=== PATIENT | female | born 1965 | race African-American/Black ===

== ENCOUNTER 2016-02-18 18:55 | Inpatient (IN) | payer OTHER ==
[2016-02-18] MEDS ORDERED: MAGNESIUM HYDROX 2400MG/30ML ORAL SUSPENSION 30 ML CUP PO PRN (19:19)
[2016-02-18] MEDS ORDERED: IBUPROFEN 400 MG TABLET (FP) PO PRN (19:19)
[2016-02-18] MEDS ORDERED: MENTHOL/PHENOL 1 EACH UD MM PRN (19:19)
[2016-02-18] MEDS ORDERED: ACETAMINOPHEN 325 MG TABLET (FP) PO PRN (19:19)
[2016-02-18] MEDS ORDERED: MAG HYDROX/AL HYDROX/SIMETH 30 ML UNIT-DOSE CUP PO PRN (19:19)
[2016-02-18] MEDS ORDERED: P-EPHED 60MG/TRIPROLIDI 2.5MG TABLET PO PRN (19:19)
[2016-02-18] MEDS ORDERED: MAGNESIUM CITRATE 300 ML BOTTLE PO PRN (19:19)
[2016-02-18] MEDS ORDERED: guaiFENesin/D-METHORPHAN HB 10 ML UNIT-DOSE CUPS PO PRN (19:19)
--- NOTE | 2016-02-18 19:19 | HP ---
DARYA ARELLANO Rehab Assess/Revision - Admission History Admitted to Rehab from: Medical/Surgical Date of Admission to Rehab: REHAB - Findings Detox History & Physical reviewed: Yes Concur with findings: Yes Comments/Additional Findings: PT. WAS SENT TO MED/SURG BY ME BECAUSE OF LLL PNEUMONIA. SHE WAS TREATED WITH IV LEVAQUIN & DEFERVESCED. URINE & BLOOD C&S NEGATIVE SO FAR. PT WILL BE RE-ADMITTED TO COMPLETE REHAB.
[2016-02-18] MEDS ORDERED: ALBUTEROL SO4 6.7 GM HFA INHALER IH PRN (19:20)
[2016-02-18] MEDS: THIAMINE HCL 100 MG TABLET (FP) PO SCH (21:48)
[2016-02-18] MEDS: BUDESONIDE/FORMETEROL FUMARATE 80/4.5 mcg INHALER IH SCH (21:48)
[2016-02-19] MEDS: diphenhydrAMINE HCL 50 MG CAPSULE PO PRN (01:00)
[2016-02-19] MEDS: GABAPENTIN 300 MG CAPSULE (FP) PO SCH ×3 (07:05→21:37)
[2016-02-19] MEDS: BACLOFEN 10 MG TABLET (FP) PO SCH ×3 (07:05→21:38)
[2016-02-19] MEDS ORDERED: ARIPiprazole 10 MG TABLET PO SCH (10:00)
[2016-02-19] MEDS ORDERED: LEVOFLOXACIN 750 MG TABLET PO SCH (10:00)
[2016-02-19] MEDS ORDERED: LEVOFLOXACIN 250 MG TABLET (FP) PO SCH (10:00)
[2016-02-19] MEDS: NICOTINE 21 MG/24 HOURS TOPICAL PATCH TD SCH (10:29)
[2016-02-19] MEDS: ARIPiprazole 15 MG TABLET PO SCH (10:30)
[2016-02-19] MEDS: BUDESONIDE/FORMETEROL FUMARATE 80/4.5 mcg INHALER IH SCH ×2 (10:30→21:40)
[2016-02-19] MEDS: amLODIPine BESYLATE 10 MG TABLET (FP) PO SCH (10:31)
[2016-02-19] MEDS: ASPIRIN 81 MG CHEWABLE TABLETS PO SCH (10:31)
[2016-02-19] MEDS: PRENATAL VITAMINS W/ FOLIC ACID TABLET (FP) PO SCH (10:31)
[2016-02-19] MEDS ORDERED: LEVOFLOXACIN 250 MG TABLET (FP) PO ONE (11:00)
[2016-02-19] MEDS: THIAMINE HCL 100 MG TABLET (FP) PO SCH (21:37)
[2016-02-19] MEDS: traZODone HCL 100 MG TABLET (FP) PO SCH (21:38)
[2016-02-20] MEDS: GABAPENTIN 300 MG CAPSULE (FP) PO SCH ×3 (06:13→21:40)
[2016-02-20] MEDS: BACLOFEN 10 MG TABLET (FP) PO SCH ×3 (06:13→21:40)
[2016-02-20] MEDS: LEVOFLOXACIN 250 MG TABLET (FP) PO SCH (06:13)
[2016-02-20] MEDS: ASPIRIN 81 MG CHEWABLE TABLETS PO SCH (10:54)
[2016-02-20] MEDS: BUDESONIDE/FORMETEROL FUMARATE 80/4.5 mcg INHALER IH SCH ×2 (10:55→21:39)
[2016-02-20] MEDS: NICOTINE 21 MG/24 HOURS TOPICAL PATCH TD SCH (10:55)
[2016-02-20] MEDS: ARIPiprazole 15 MG TABLET PO SCH (10:55)
[2016-02-20] MEDS: amLODIPine BESYLATE 10 MG TABLET (FP) PO SCH (10:55)
[2016-02-20] MEDS: PRENATAL VITAMINS W/ FOLIC ACID TABLET (FP) PO SCH (10:55)
[2016-02-20] MEDS: NICOTINE POLACRILEX 2 MG GUM BUC PRN (11:18)
[2016-02-20] MEDS: THIAMINE HCL 100 MG TABLET (FP) PO SCH (21:39)
[2016-02-20] MEDS: traZODone HCL 100 MG TABLET (FP) PO SCH (21:40)
[2016-02-20] MEDS: amLODIPine BESYLATE 5 MG TABLET (FP) PO SCH (23:25)
[2016-02-21] MEDS: GABAPENTIN 300 MG CAPSULE (FP) PO SCH ×3 (06:31→21:40)
[2016-02-21] MEDS: BACLOFEN 10 MG TABLET (FP) PO SCH ×3 (06:31→21:40)
[2016-02-21] MEDS: LEVOFLOXACIN 250 MG TABLET (FP) PO SCH (06:32)
[2016-02-21] MEDS: PRENATAL VITAMINS W/ FOLIC ACID TABLET (FP) PO SCH (10:33)
[2016-02-21] MEDS: ARIPiprazole 15 MG TABLET PO SCH (10:33)
[2016-02-21] MEDS: BUDESONIDE/FORMETEROL FUMARATE 80/4.5 mcg INHALER IH SCH ×2 (10:33→21:39)
[2016-02-21] MEDS: amLODIPine BESYLATE 5 MG TABLET (FP) PO SCH ×2 (10:33→21:40)
[2016-02-21] MEDS: NICOTINE 21 MG/24 HOURS TOPICAL PATCH TD SCH (10:34)
[2016-02-21] MEDS: ASPIRIN 81 MG CHEWABLE TABLETS PO SCH (10:34)
[2016-02-21] MEDS: NICOTINE POLACRILEX 2 MG GUM BUC PRN (10:37)
[2016-02-21] MEDS: traZODone HCL 100 MG TABLET (FP) PO SCH (21:40)
[2016-02-21] MEDS: THIAMINE HCL 100 MG TABLET (FP) PO SCH (21:40)
[2016-02-22] MEDS: GABAPENTIN 300 MG CAPSULE (FP) PO SCH ×3 (06:17→22:02)
[2016-02-22] MEDS: BACLOFEN 10 MG TABLET (FP) PO SCH ×3 (06:17→22:02)
[2016-02-22] MEDS: LEVOFLOXACIN 250 MG TABLET (FP) PO SCH (06:18)
[2016-02-22] MEDS: ARIPiprazole 15 MG TABLET PO SCH (11:08)
[2016-02-22] MEDS: PRENATAL VITAMINS W/ FOLIC ACID TABLET (FP) PO SCH (11:08)
[2016-02-22] MEDS: NICOTINE 21 MG/24 HOURS TOPICAL PATCH TD SCH (11:08)
[2016-02-22] MEDS: ASPIRIN 81 MG CHEWABLE TABLETS PO SCH (11:08)
[2016-02-22] MEDS: amLODIPine BESYLATE 5 MG TABLET (FP) PO SCH ×2 (11:08→22:02)
[2016-02-22] MEDS: BUDESONIDE/FORMETEROL FUMARATE 80/4.5 mcg INHALER IH SCH ×2 (11:09→22:04)
[2016-02-22] MEDS: THIAMINE HCL 100 MG TABLET (FP) PO SCH (22:02)
[2016-02-22] MEDS: traZODone HCL 100 MG TABLET (FP) PO SCH (22:02)
[2016-02-23] MEDS: LEVOFLOXACIN 250 MG TABLET (FP) PO SCH (05:56)
[2016-02-23] MEDS: GABAPENTIN 300 MG CAPSULE (FP) PO SCH ×3 (05:56→22:01)
[2016-02-23] MEDS: BACLOFEN 10 MG TABLET (FP) PO SCH ×3 (05:57→22:01)
[2016-02-23] MEDS: amLODIPine BESYLATE 5 MG TABLET (FP) PO SCH ×2 (10:51→22:38)
[2016-02-23] MEDS: ASPIRIN 81 MG CHEWABLE TABLETS PO SCH (10:51)
[2016-02-23] MEDS: NICOTINE 21 MG/24 HOURS TOPICAL PATCH TD SCH (10:51)
[2016-02-23] MEDS: PRENATAL VITAMINS W/ FOLIC ACID TABLET (FP) PO SCH (10:51)
[2016-02-23] MEDS: ARIPiprazole 15 MG TABLET PO SCH (10:51)
[2016-02-23] MEDS: BUDESONIDE/FORMETEROL FUMARATE 80/4.5 mcg INHALER IH SCH ×2 (10:52→22:00)
[2016-02-23] MEDS: THIAMINE HCL 100 MG TABLET (FP) PO SCH (22:01)
[2016-02-23] MEDS: traZODone HCL 100 MG TABLET (FP) PO SCH (22:02)
[2016-02-24] MEDS: LEVOFLOXACIN 250 MG TABLET (FP) PO SCH (06:36)
[2016-02-24] MEDS: BACLOFEN 10 MG TABLET (FP) PO SCH ×3 (06:36→21:57)
[2016-02-24] MEDS: GABAPENTIN 300 MG CAPSULE (FP) PO SCH ×3 (06:36→21:57)
[2016-02-24] MEDS: ASPIRIN 81 MG CHEWABLE TABLETS PO SCH (10:49)
[2016-02-24] MEDS: PRENATAL VITAMINS W/ FOLIC ACID TABLET (FP) PO SCH (10:49)
[2016-02-24] MEDS: NICOTINE 21 MG/24 HOURS TOPICAL PATCH TD SCH (10:49)
[2016-02-24] MEDS: ARIPiprazole 15 MG TABLET PO SCH (10:49)
[2016-02-24] MEDS: amLODIPine BESYLATE 5 MG TABLET (FP) PO SCH ×2 (10:49→21:57)
[2016-02-24] MEDS: BUDESONIDE/FORMETEROL FUMARATE 80/4.5 mcg INHALER IH SCH ×2 (10:49→21:58)
[2016-02-24] MEDS: NICOTINE POLACRILEX 2 MG GUM BUC PRN (10:51)
--- NOTE | 2016-02-24 11:00 | PN ---
[facility] Progress Note Note: PT. C/O SHARP CHEST PAIN ALONG STERNAL BORDER,SHE CURRENTLY BEING TREATED FOR PNEUMONIA. Vital Signs - 8 hr 02/24/16 02/24/16 02/24/16 03:30 07:10 09:43 Temperature 98.6 F Pulse Rate 88 88 Respiratory 18 18 Rate Blood Pressure 128/83 116/71 LUNGS : CLEAR TO A&P HEART RR, NO MURMUR EKG = WNL P : CONTINUE LEVAQUIN
[2016-02-24] MEDS: diphenhydrAMINE HCL 50 MG CAPSULE PO PRN (21:55)
[2016-02-24] MEDS: THIAMINE HCL 100 MG TABLET (FP) PO SCH (21:55)
[2016-02-24] MEDS: traZODone HCL 100 MG TABLET (FP) PO SCH (21:57)
[2016-02-25] MEDS: GABAPENTIN 300 MG CAPSULE (FP) PO SCH ×3 (06:32→21:47)
[2016-02-25] MEDS: BACLOFEN 10 MG TABLET (FP) PO SCH ×3 (06:32→21:46)
[2016-02-25] MEDS: LEVOFLOXACIN 250 MG TABLET (FP) PO SCH (06:32)
[2016-02-25] MEDS: ARIPiprazole 15 MG TABLET PO SCH (10:43)
[2016-02-25] MEDS: amLODIPine BESYLATE 5 MG TABLET (FP) PO SCH ×2 (10:43→21:46)
[2016-02-25] MEDS: ASPIRIN 81 MG CHEWABLE TABLETS PO SCH (10:43)
[2016-02-25] MEDS: BUDESONIDE/FORMETEROL FUMARATE 80/4.5 mcg INHALER IH SCH ×2 (10:43→21:46)
[2016-02-25] MEDS: PRENATAL VITAMINS W/ FOLIC ACID TABLET (FP) PO SCH (10:44)
[2016-02-25] MEDS: NICOTINE 21 MG/24 HOURS TOPICAL PATCH TD SCH (10:44)
[2016-02-25] MEDS: hydrOXYzine PAMOATE 50 MG CAPSULE (FP) PO PRN (13:45)
[2016-02-25] MEDS: THIAMINE HCL 100 MG TABLET (FP) PO SCH (21:46)
[2016-02-25] MEDS: traZODone HCL 100 MG TABLET (FP) PO SCH (21:46)
[2016-02-26] MEDS: LEVOFLOXACIN 250 MG TABLET (FP) PO SCH (06:06)
[2016-02-26] MEDS: GABAPENTIN 300 MG CAPSULE (FP) PO SCH ×3 (06:07→21:35)
[2016-02-26] MEDS: BACLOFEN 10 MG TABLET (FP) PO SCH ×3 (06:07→21:35)
[2016-02-26] MEDS: amLODIPine BESYLATE 5 MG TABLET (FP) PO SCH (10:27)
[2016-02-26] MEDS: ARIPiprazole 15 MG TABLET PO SCH (10:27)
[2016-02-26] MEDS: ASPIRIN 81 MG CHEWABLE TABLETS PO SCH (10:27)
[2016-02-26] MEDS: PRENATAL VITAMINS W/ FOLIC ACID TABLET (FP) PO SCH (10:27)
[2016-02-26] MEDS: BUDESONIDE/FORMETEROL FUMARATE 80/4.5 mcg INHALER IH SCH ×2 (10:28→21:37)
[2016-02-26] MEDS: NICOTINE 21 MG/24 HOURS TOPICAL PATCH TD SCH (10:28)
[2016-02-26] MEDS: traZODone HCL 100 MG TABLET (FP) PO SCH (21:35)
[2016-02-26] MEDS: THIAMINE HCL 100 MG TABLET (FP) PO SCH (21:35)
[2016-02-27] MEDS: BACLOFEN 10 MG TABLET (FP) PO SCH ×3 (06:18→21:40)
[2016-02-27] MEDS: GABAPENTIN 300 MG CAPSULE (FP) PO SCH ×3 (06:19→21:41)
[2016-02-27] MEDS: ARIPiprazole 15 MG TABLET PO SCH (10:31)
[2016-02-27] MEDS: ASPIRIN 81 MG CHEWABLE TABLETS PO SCH (10:32)
[2016-02-27] MEDS: NICOTINE 21 MG/24 HOURS TOPICAL PATCH TD SCH (10:32)
[2016-02-27] MEDS: PRENATAL VITAMINS W/ FOLIC ACID TABLET (FP) PO SCH (10:33)
[2016-02-27] MEDS: amLODIPine BESYLATE 5 MG TABLET (FP) PO SCH (10:33)
[2016-02-27] MEDS: BUDESONIDE/FORMETEROL FUMARATE 80/4.5 mcg INHALER IH SCH ×2 (10:34→21:40)
[2016-02-27] MEDS: NICOTINE POLACRILEX 2 MG GUM BUC PRN (10:35)
[2016-02-27] MEDS: THIAMINE HCL 100 MG TABLET (FP) PO SCH (21:41)
[2016-02-27] MEDS: traZODone HCL 100 MG TABLET (FP) PO SCH (21:41)
[2016-02-28] MEDS: BACLOFEN 10 MG TABLET (FP) PO SCH ×3 (06:43→21:42)
[2016-02-28] MEDS: GABAPENTIN 300 MG CAPSULE (FP) PO SCH ×3 (06:44→21:41)
--- NOTE | 2016-02-28 09:48 | EKG ---
Test Reason : Blood Pressure : / mmHG Vent. Rate : 073 BPM Atrial Rate : 073 BPM P-R Int : 152 ms QRS Dur : 088 ms QT Int : 422 ms P-R-T Axes : 039 015 033 degrees QTc Int : 464 ms NORMAL SINUS RHYTHM NORMAL ECG WHEN COMPARED WITH ECG OF 16-FEB-2016 14:22, T WAVE AMPLITUDE HAS INCREASED IN LATERAL LEADS Confirmed by ARTHUR ARELLANO, MAKEDA ([id number]) on 02/28/2016 9:47:51 AM Referred By: Confirmed By:MAKEDA GIBSON MD
[2016-02-28] MEDS: amLODIPine BESYLATE 5 MG TABLET (FP) PO SCH (10:23)
[2016-02-28] MEDS: ARIPiprazole 15 MG TABLET PO SCH (10:23)
[2016-02-28] MEDS: NICOTINE 21 MG/24 HOURS TOPICAL PATCH TD SCH (10:23)
[2016-02-28] MEDS: ASPIRIN 81 MG CHEWABLE TABLETS PO SCH (10:23)
[2016-02-28] MEDS: BUDESONIDE/FORMETEROL FUMARATE 80/4.5 mcg INHALER IH SCH ×2 (10:24→21:41)
[2016-02-28] MEDS: PRENATAL VITAMINS W/ FOLIC ACID TABLET (FP) PO SCH (10:24)
[2016-02-28] MEDS: NICOTINE POLACRILEX 2 MG GUM BUC PRN (13:04)
[2016-02-28] MEDS: LIDOCAINE 5% TOPICAL PATCH TP SCH (15:31)
[2016-02-28] MEDS: THIAMINE HCL 100 MG TABLET (FP) PO SCH (21:42)
[2016-02-28] MEDS: traZODone HCL 100 MG TABLET (FP) PO SCH (21:42)
[2016-02-29] MEDS: GABAPENTIN 300 MG CAPSULE (FP) PO SCH ×3 (06:16→21:56)
[2016-02-29] MEDS: BACLOFEN 10 MG TABLET (FP) PO SCH ×3 (06:17→21:58)
[2016-02-29] MEDS: LIDOCAINE 5% TOPICAL PATCH TP SCH (10:26)
[2016-02-29] MEDS: BUDESONIDE/FORMETEROL FUMARATE 80/4.5 mcg INHALER IH SCH ×2 (10:26→21:45)
[2016-02-29] MEDS: ASPIRIN 81 MG CHEWABLE TABLETS PO SCH (10:27)
[2016-02-29] MEDS: NICOTINE 21 MG/24 HOURS TOPICAL PATCH TD SCH (10:27)
[2016-02-29] MEDS: PRENATAL VITAMINS W/ FOLIC ACID TABLET (FP) PO SCH (10:27)
[2016-02-29] MEDS: ARIPiprazole 15 MG TABLET PO SCH (10:28)
[2016-02-29] MEDS: amLODIPine BESYLATE 5 MG TABLET (FP) PO SCH (10:28)
[2016-02-29] MEDS: LOPERAMIDE HCL 2 MG CAPSULE PO PRN (10:29)
[2016-02-29] MEDS: THIAMINE HCL 100 MG TABLET (FP) PO SCH (21:56)
[2016-02-29] MEDS: traZODone HCL 100 MG TABLET (FP) PO SCH (21:56)
[2016-03-01] MEDS: LOPERAMIDE HCL 2 MG CAPSULE PO PRN (06:22)
[2016-03-01] MEDS: BACLOFEN 10 MG TABLET (FP) PO SCH ×3 (06:22→21:52)
[2016-03-01] MEDS: GABAPENTIN 300 MG CAPSULE (FP) PO SCH ×3 (06:23→21:50)
[2016-03-01] MEDS: ASPIRIN 81 MG CHEWABLE TABLETS PO SCH (10:43)
[2016-03-01] MEDS: ARIPiprazole 15 MG TABLET PO SCH (10:43)
[2016-03-01] MEDS: BUDESONIDE/FORMETEROL FUMARATE 80/4.5 mcg INHALER IH SCH ×2 (10:43→21:52)
[2016-03-01] MEDS: PRENATAL VITAMINS W/ FOLIC ACID TABLET (FP) PO SCH (10:43)
[2016-03-01] MEDS: amLODIPine BESYLATE 5 MG TABLET (FP) PO SCH (10:43)
[2016-03-01] MEDS: LIDOCAINE 5% TOPICAL PATCH TP SCH (10:44)
[2016-03-01] MEDS: NICOTINE 21 MG/24 HOURS TOPICAL PATCH TD SCH (10:44)
[2016-03-01] MEDS: NICOTINE POLACRILEX 2 MG GUM BUC PRN (10:46)
[2016-03-01] MEDS: THIAMINE HCL 100 MG TABLET (FP) PO SCH (21:50)
[2016-03-01] MEDS: traZODone HCL 100 MG TABLET (FP) PO SCH (21:51)
[2016-03-02] MEDS: GABAPENTIN 300 MG CAPSULE (FP) PO SCH ×3 (06:11→21:42)
[2016-03-02] MEDS: BACLOFEN 10 MG TABLET (FP) PO SCH ×3 (06:11→21:43)
[2016-03-02] MEDS: NICOTINE 21 MG/24 HOURS TOPICAL PATCH TD SCH (10:18)
[2016-03-02] MEDS: LIDOCAINE 5% TOPICAL PATCH TP SCH (10:18)
[2016-03-02] MEDS: ARIPiprazole 15 MG TABLET PO SCH (10:19)
[2016-03-02] MEDS: PRENATAL VITAMINS W/ FOLIC ACID TABLET (FP) PO SCH (10:19)
[2016-03-02] MEDS: BUDESONIDE/FORMETEROL FUMARATE 80/4.5 mcg INHALER IH SCH ×2 (10:19→21:42)
[2016-03-02] MEDS: amLODIPine BESYLATE 5 MG TABLET (FP) PO SCH (10:19)
[2016-03-02] MEDS: ASPIRIN 81 MG CHEWABLE TABLETS PO SCH (10:19)
[2016-03-02] MEDS: traZODone HCL 100 MG TABLET (FP) PO SCH (21:42)
[2016-03-02] MEDS: THIAMINE HCL 100 MG TABLET (FP) PO SCH (21:43)
[2016-03-03] MEDS: GABAPENTIN 300 MG CAPSULE (FP) PO SCH ×3 (06:34→21:40)
[2016-03-03] MEDS: BACLOFEN 10 MG TABLET (FP) PO SCH ×3 (06:35→21:41)
[2016-03-03] MEDS: amLODIPine BESYLATE 5 MG TABLET (FP) PO SCH (09:27)
[2016-03-03] MEDS: ARIPiprazole 15 MG TABLET PO SCH (10:28)
[2016-03-03] MEDS: ASPIRIN 81 MG CHEWABLE TABLETS PO SCH (10:28)
[2016-03-03] MEDS: BUDESONIDE/FORMETEROL FUMARATE 80/4.5 mcg INHALER IH SCH ×2 (10:28→21:40)
[2016-03-03] MEDS: PRENATAL VITAMINS W/ FOLIC ACID TABLET (FP) PO SCH (10:28)
[2016-03-03] MEDS: NICOTINE 21 MG/24 HOURS TOPICAL PATCH TD SCH (10:29)
[2016-03-03] MEDS: LIDOCAINE 5% TOPICAL PATCH TP SCH (10:29)
[2016-03-03] MEDS ORDERED: PT OWN MED DRAWER 7, Y5N ONE (20:08)
[2016-03-03] MEDS: THIAMINE HCL 100 MG TABLET (FP) PO SCH (21:41)
[2016-03-03] MEDS: traZODone HCL 100 MG TABLET (FP) PO SCH (21:41)
[2016-03-04] MEDS: hydrOXYzine PAMOATE 50 MG CAPSULE (FP) PO PRN (02:37)
[2016-03-04] MEDS: BACLOFEN 10 MG TABLET (FP) PO SCH ×3 (06:05→22:07)
[2016-03-04] MEDS: GABAPENTIN 300 MG CAPSULE (FP) PO SCH ×3 (06:05→22:07)
[2016-03-04] MEDS: ASPIRIN 81 MG CHEWABLE TABLETS PO SCH (10:39)
[2016-03-04] MEDS: amLODIPine BESYLATE 5 MG TABLET (FP) PO SCH (10:39)
[2016-03-04] MEDS: ARIPiprazole 15 MG TABLET PO SCH (10:39)
[2016-03-04] MEDS: PRENATAL VITAMINS W/ FOLIC ACID TABLET (FP) PO SCH (10:40)
[2016-03-04] MEDS: BUDESONIDE/FORMETEROL FUMARATE 80/4.5 mcg INHALER IH SCH ×2 (10:40→22:09)
[2016-03-04] MEDS: LIDOCAINE 5% TOPICAL PATCH TP SCH (10:41)
[2016-03-04] MEDS: NICOTINE 21 MG/24 HOURS TOPICAL PATCH TD SCH (10:42)
[2016-03-04] MEDS: THIAMINE HCL 100 MG TABLET (FP) PO SCH (22:07)
[2016-03-04] MEDS: traZODone HCL 100 MG TABLET (FP) PO SCH (22:07)
[2016-03-05] MEDS: GABAPENTIN 300 MG CAPSULE (FP) PO SCH ×3 (06:15→22:49)
[2016-03-05] MEDS: BACLOFEN 10 MG TABLET (FP) PO SCH ×3 (06:15→22:49)
[2016-03-05] MEDS: NICOTINE 21 MG/24 HOURS TOPICAL PATCH TD SCH (10:45)
[2016-03-05] MEDS: ASPIRIN 81 MG CHEWABLE TABLETS PO SCH (10:46)
[2016-03-05] MEDS: PRENATAL VITAMINS W/ FOLIC ACID TABLET (FP) PO SCH (10:46)
[2016-03-05] MEDS: BUDESONIDE/FORMETEROL FUMARATE 80/4.5 mcg INHALER IH SCH ×2 (10:46→22:50)
[2016-03-05] MEDS: ARIPiprazole 15 MG TABLET PO SCH (10:46)
[2016-03-05] MEDS: amLODIPine BESYLATE 5 MG TABLET (FP) PO SCH (10:48)
[2016-03-05] MEDS: LIDOCAINE 5% TOPICAL PATCH TP SCH (10:55)
[2016-03-05] MEDS: THIAMINE HCL 100 MG TABLET (FP) PO SCH (22:49)
[2016-03-05] MEDS: traZODone HCL 100 MG TABLET (FP) PO SCH (22:49)
[2016-03-06] MEDS: BACLOFEN 10 MG TABLET (FP) PO SCH ×3 (06:06→21:35)
[2016-03-06] MEDS: GABAPENTIN 300 MG CAPSULE (FP) PO SCH ×3 (06:06→21:35)
[2016-03-06] MEDS ORDERED: PT OWN MED DRAWER 7, Y5N ONE (08:41)
[2016-03-06] MEDS: LIDOCAINE 5% TOPICAL PATCH TP SCH (10:42)
[2016-03-06] MEDS: NICOTINE 21 MG/24 HOURS TOPICAL PATCH TD SCH (10:42)
[2016-03-06] MEDS: BUDESONIDE/FORMETEROL FUMARATE 80/4.5 mcg INHALER IH SCH ×2 (10:43→21:37)
[2016-03-06] MEDS: ASPIRIN 81 MG CHEWABLE TABLETS PO SCH (10:43)
[2016-03-06] MEDS: ARIPiprazole 15 MG TABLET PO SCH (10:43)
[2016-03-06] MEDS: amLODIPine BESYLATE 5 MG TABLET (FP) PO SCH (10:43)
[2016-03-06] MEDS: PRENATAL VITAMINS W/ FOLIC ACID TABLET (FP) PO SCH (10:43)
--- NOTE | 2016-03-06 14:41 | PN ---
Psychiatric Progress Note Vital Signs: Vital Signs Period Temp Pulse Resp BP Sys/Li Pulse Ox Last 24 Hr 98.5 F 84-91 16-18 121-122/82-82 Date of Session: 03/06/16 Chief Complaint:: Discharge visit HPI: Patient addressed Alcohol,Opioid and Cocaine dependence comorbid with Bipolar disorder. ROS: BA,Chronic arthritis,HTN. Current Medications: Active Medications Generic Name Dose Route Start Last Admin Trade Name Freq PRN Reason Stop Dose Admin Acetaminophen 650 mg 02/18/16 19:19 Tylenol - PO Q4H PRN FEVER OR PAIN Al Hydroxide/Mg Hydroxide 30 ml 02/18/16 19:19 Mylanta Oral Suspension - PO Q6H PRN DYSPEPSIA Albuterol Sulfate 2 puff 02/18/16 19:20 Ventolin Hfa Inhaler - IH Q4H PRN ASTHMA Amlodipine Besylate 5 mg 02/27/16 10:00 03/06/16 10:43 Norvasc - PO 5 mg DAILY SAROJ Administration Aripiprazole 15 mg 02/19/16 10:15 03/06/16 10:43 Abilify PO 15 mg DAILY SAROJ Administration Aspirin 81 mg 02/19/16 10:00 03/06/16 10:43 Asa - PO 81 mg DAILY SAROJ Administration Baclofen 20 mg 02/19/16 06:00 03/06/16 13:25 Lioresal - PO 20 mg TID SAROJ Administration Budesonide/Formoterol Fumarate 2 puff 02/18/16 22:00 03/06/16 10:43 Symbicort 80/4.5mcg - IH 2 puff BID SAROJ Administration Diphenhydramine HCl 50 mg 02/18/16 19:19 02/24/16 21:55 Benadryl - PO 50 mg HSMR1 PRN Administration FOR ITCHING Eucalyptus/Menthol/Phenol/Sorbitol 1 each 02/18/16 19:19 Cepastat Lozenge - MM Q4H PRN SORE THROAT Gabapentin 900 mg 02/19/16 06:15 03/06/16 13:25 Neurontin - PO 900 mg TID SAROJ Administration Guaifenesin 10 ml 02/18/16 19:19 Robitussin Dm - PO Q6H PRN COUGH Hydroxyzine Pamoate 50 mg 02/22/16 10:56 03/04/16 02:37 Vistaril - PO 50 mg Q6H PRN Administration ANXIETY Ibuprofen 400 mg 02/18/16 19:19 03/03/16 06:36 Motrin - PO 400 mg Q6H PRN Administration PAIN Lidocaine 1 patch 02/28/16 15:00 03/06/16 10:42 Lidoderm Patch - TP 1 patch DAILY SAROJ Administration Loperamide HCl 4 mg 02/18/16 19:19 03/01/16 06:22 Imodium - PO 4 mg Q6H PRN Administration DIARRHEA Magnesium Hydroxide 30 ml 02/18/16 19:19 Milk Of Magnesia - PO DAILY PRN CONSTIPATION Nicotine 21 mg 02/19/16 10:00 03/06/16 10:42 Nicoderm Patch - TD 21 mg DAILY SAROJ Administration Nicotine Polacrilex 2 mg 02/18/16 19:19 03/01/16 10:46 Nicorette Gum - BUC 2 mg Q2H PRN Administration NICOTINE REPLACEMENT RX Multivit/Folic Acid/Iron 1 tab 02/19/16 10:00 03/06/16 10:43 Vitamins (Sjr) - PO 1 tab DAILY SAROJ Administration Pseudoephedrine/Triprolidine 1 combo 02/18/16 19:19 Actifed - PO TID PRN NASAL CONGESTION Thiamine HCl 100 mg 02/18/16 22:00 03/05/16 22:49 Vitamin B1 - PO 100 mg HS SAROJ Administration Trazodone HCl 200 mg 02/19/16 22:00 03/05/16 22:49 Desyrel - PO 200 mg HS SAROJ Administration Current Side Effect: No Lab tests ordered: No Lab tests reviewed: Yes Provider note:: patient will complete this program tomorrow 03/07/16.She was readmitted from medical floor of [facility] on 02/18/16 after being treated for pneumonia(patient was reffered to ER from this program on 02/16/16 due to SOB,couphing,sweating and fever).She has met her treatment goals and will continue to address her issues on outpatient basis.patient continues to find that current medications:Trazodone 200 mg po hs,Neurontin 900 mg po tid and Abilify 15 mg po daily help to reduce her anxiety,depression,sleeping difficulties and mood instability.Scripts for 30 days supply provided.Therapy provided focusing on relapse prevention.Patient identifies behaviors which contribute to relapse and skills,support she can utilize to maintain recovery. Patient is stable for discharge tomorrow 03/07/16. Total face to face time:: 30 Mental Status Exam - Mental Status Exam Alert and Oriented to: Time, Place, Person Cognitive Function: Grossly Intact Patient Appearance: Well Groomed Mood: Euthymic Affect: Appropriate, Mood Congruent Patient Behavior: Cooperative Speech Pattern: Clear Voice Loudness: Normal Thought Process: Goal Oriented Thought Disorder: Not Present Hallucinations: Denies Suicidal Ideation: Denies Homicidal Ideation: Denies Insight/Judgement: Fair Sleep: Fair Appetite: Good Muscle strength/Tone: Normal Gait/Station: Normal
[2016-03-06] MEDS: traZODone HCL 100 MG TABLET (FP) PO SCH (21:35)
[2016-03-06] MEDS: THIAMINE HCL 100 MG TABLET (FP) PO SCH (21:37)
[2016-03-07] MEDS: GABAPENTIN 300 MG CAPSULE (FP) PO SCH (06:43)
[2016-03-07] MEDS: BACLOFEN 10 MG TABLET (FP) PO SCH (06:43)
[2016-03-07 06:56] VITALS: BP 122/83; PULSE 98; TEMP 98.2
== END 2016-03-07 06:52 | disposition home or self-care (01) | DRG 772 ==
LOC: YASAS 18:55 → Y3E 19:26
PROVIDERS: ADMIT Psychiatry & Neurology Psychiatry; ATTEND Psychiatry & Neurology Psychiatry
PROC: HZ42ZZZ Group Counseling for Substance Abuse Treatment, Cognitive-Behavioral (ICD-10-PCS; principal; 2016-02-18)
DX: F11.20 Opioid dependence, uncomplicated (principal); F10.20 Alcohol dependence, uncomplicated; F14.20 Cocaine dependence, uncomplicated; F31.9 Bipolar disorder, unspecified; J45.909 Unspecified asthma, uncomplicated; M19.90 Unspecified osteoarthritis, unspecified site; I10 Essential (primary) hypertension; R07.9 Chest pain, unspecified
CPT/HCPCS: 93005; 93010; J0475